=== PATIENT | female | born 1995 | race Two or more races ===

== ENCOUNTER 2024-08-24 11:06 | Emergency (ER) | payer MEDICAID, SELFPAY ==
--- NOTE | 2024-08-24 11:17 | XR_ITS ---
Examination: PA lateral chest 2 views TECHNIQUE: Upright PA lateral chest 2 views Exam date and time: August 24, 2024 1142 hours INDICATIONS: Fever congestion coughing beginning 5 days ago. FINDINGS: Normal heart size. Lungs are clear. Osseous structures are intact IMPRESSION: No active disease
[2024-08-24 11:21] VITALS: BP 133/91; PULSE 82; RESP 19; TEMP 37.8; O2SAT 98; BMI 34.7
--- NOTE | 2024-08-24 13:23 | EDNOTE_ITS ---
ED Dizzyness RME/HPI General Chief Complaint: Dizziness Stated Complaint: Dizzy, cough, fever Time Seen by Provider: 08/24/24 11:16 Arrival date/time: 08/24/24 11:06 29-year-old female presents emergency department complaints of cough, congestion, fever, body aches and dizziness ongoing x 1 week Limitations: no limitations Related Data Previous Rx's ?Medication ?Instructions ?Recorded ibuprofen 600 mg tablet 600 mg PO Q8H PRN fever or pain 04/29/24 #20 tabs amoxicillin 875 mg-potassium 1 tab PO BID 10 days #20 tabs 08/24/24 clavulanate 125 mg tablet ibuprofen 800 mg tablet 800 mg PO TID PRN pain #30 tabs 08/24/24 Allergies Allergy/AdvReac Type Severity Reaction Status Date / Time No Known Allergies Allergy Verified 04/29/24 09:23 Review of Systems Review of Systems Systems Reviewed: All systems reviewed, normal except as documented Constitutional Constitutional: Reports system reviewed and no additional complaints, except as documented, Reports body ache(s), Reports chills, Reports fever(s) and Reports headache(s) Eyes Eyes: Reports system reviewed and no additional complaints, except as documented and Denies blurry vision ENT Ears, Nose, Mouth, and Throat: Reports system reviewed and no additional complaints, except as documented, Reports headache(s), Reports nasal congestion and Reports nasal discharge Cardiovascular Cardiovascular: Reports system reviewed and no additional complaints, except as documented, Denies chest pain and Denies dyspnea Respiratory Respiratory: Reports system reviewed and no additional complaints, except as documented, Reports chest congestion, Reports cough and Denies dyspnea Gastrointestinal Gastrointestinal: Reports system reviewed and no additional complaints, except as documented and Denies abdominal pain Integumentary/Breasts Skin/Breast: Reports system reviewed and no additional complaints, except as documented and Denies rash Neurologic Neurologic: Reports system reviewed and no additional complaints, except as documented, Reports as per HPI and Reports headache(s) Past Medical History Past Medical History NEUROLOGIC: Negative Neurological Disorders CARDIAC: Negative Cardiac Disorders ED Exam General Limitations: Present no limitations General appearance: Present alert and in no apparent distress Head Head exam: Present atraumatic, normocephalic and normal inspection Eye Eye exam: Present normal appearance, PERRL and EOMI; Absent conjunctival injection ENT ENT exam: Present normal exam, normal oropharynx and mucous membranes moist Neck Neck exam: Present normal inspection, full ROM and trachea midline Chest Chest inspection: Present normal inspection and symmetric chest wall rise Respiratory Respiratory exam: Present normal lung sounds bilaterally; Absent respiratory distress Cardiovascular Cardiovascular exam: Present regular rate, normal rhythm and normal heart sounds Abdominal Exam Abdominal exam: Present soft and normal bowel sounds; Absent distention, tenderness, guarding, rebound or rigidity Extremities Exam Extremities exam: Present normal inspection and full ROM Back Exam Back exam: Present normal inspection and full ROM Neurological Exam Neurological exam: Present alert, oriented X3 and CN II-XII intact Psychiatric Psychiatric exam: Present normal affect and normal mood Skin Skin exam: Present warm, dry, intact and normal color Course Quality Measures none Orders Category Date Time Status Bedside COVID-19 Antigen Test NOW Care 08/24/24 11:17 Completed Bedside Influenza A&B Antigen Test NOW Care 08/24/24 11:17 Completed XR chest 2V Stat Exams 08/24/24 11:17 Completed Vital Signs Vital signs: Vital Signs Temperature 100.0 F 08/24/24 11:21 Pulse Rate 82 08/24/24 11:21 Respiratory Rate 19 08/24/24 11:21 Blood Pressure 133/91 H 08/24/24 11:21 Pulse Oximetry (%) 98 08/24/24 11:21 Oxygen Delivery Method Room Air 08/24/24 11:21 O2 saturation 98% room air within normal limits Dizziness MDM Narrative MDM Narrative:: 29-year-old female presents emergency department complaints of cough, congestion, fever, body aches and dizziness ongoing x 1 week On exam patient well-appearing patient does not appear ill or toxic in no acute distress Lab work as well as chest x-ray obtained no acute emergent findings noted Patient discharged home in no distress to follow-up with primary care doctor in the next 24 to 48 hours and for any worsening symptoms to return to the ER immediately Patient data External records reviewed:: [facility] previous records Clinical information provided by:: patient Social determinants that could affect healthcare access:: none Patient has the following chronic illnesses:: None How is presenting disease/condition affected by chronic disease/condition?: no chronic disease Evaluation data The following diagnostics were reviewed and interpreted by me:: lab results and radiology exam(s) Lab and/or radiology exams considered but not ordered:: Labs and radiology obtained Interpretation Summary: Reviewed by me Medications / Prescriptions Medications or Prescriptions considered but not ordered:: Given Medication administrations:: Given Consultations Consultation(s) initiated? (list below): No Diagnosis Most likely diagnosis given after review of the tests above:: URI Admission Indicated Admission indicated?: not indicated Admission Request Was there a request for admission?: No Disposition Plan Disposition Plan: Discharge Discharge Attestation Discharge Attestation: The patient and all family members were given an opportunity to ask questions and understood the discharge instructions. Discharge instructions specifically effects, indications for sooner follow up or return to the emergency department, and the expected course of current diagnosis. Patient condition: Stable Discharge Plan Plan Patient Disposition: HOME (Self Care) Disposition Comment: stable Prescriptions/Referrals Prescriptions/Med Rec: New ibuprofen 800 mg tablet 800 mg PO TID PRN (Reason: pain) Qty: 30 0RF amoxicillin-pot clavulanate 875-125 mg tablet 1 tab PO BID 10 Days Qty: 20 0RF No Action ibuprofen 600 mg tablet 600 mg PO Q8H PRN (Reason: fever or pain) Qty: 20 0RF Referrals: Shreyas Wagner MD [Primary Care Provider] - 08/28/24 Problem List Clinical Impression: Cough, Fever Patient/Caregiver Discharge Instructions Additional Instructions: Please follow up with your primary care doctor in the next 24-48hrs for any worsening symptoms return here immediately Print Language: Albanian Stand Alone Forms: Sonya Award Info., Work/School Release, Patient Portal Info Letter MARGOT/CHRIS Supervising Physician MARGOT/CHRIS Supervising Physician: Dr Jones
== END 2024-08-24 13:32 | disposition home or self-care (01) ==
PROVIDERS: Emergency Provider Emergency Medicine; PCP Family Medicine
DX: R05.9 Cough, unspecified (principal); R50.9 Fever, unspecified; R42 Dizziness and giddiness
CPT/HCPCS: 71046; 87400; 87811; 99283